=== PATIENT | male | born 1950 | race Caucasian/White ===

== ENCOUNTER → 2016-12-06 | Outpatient (CLI) | payer OTHER, MEDICARE ==
--- NOTE | 2016-12-06 13:40 | EKG ---
Date Performed: 12/06/2016 Time Performed: 09:01:20 PTAGE: 66 years EKG: Sinus rhythm . Right bundle branch block Inferior T wave changes are nonspecific Abnormal ECG NO PREVIOUS TRACING DOCTOR: Armand Garcia Interpretating Date/Time 12/06/2016 13:38:45
[2016-12-07 15:07] LABS: BICARBONATE 30.3 MEQ/L (21.0-32.0); POTASSIUM 3.8 MEQ/L (3.5-5.1)
[2016-12-07 15:52] LABS: HEMATOCRIT 41.1 % (39.0-51.0); MEAN CELL VOLUME 95.5 FL (80.0-100.0); MEAN CORPUSCULAR HEMOGLOBIN 33.3 PG (27.0-34.0); RED BLOOD COUNT 4.31 MIL/MM3 (4.50-5.90); WHITE BLOOD COUNT 7.5 TH/MM3 (4.0-11.0)
[2016-12-07 15:53] LABS: MEAN CORPUSCULAR HGB CONC 34.9 % (32.0-36.0); PLATELET COUNT 207 TH/MM3 (150-450); RED CELL DISTRIBUTION WIDTH 13.3 % (11.6-17.2); REVIEW FLAG FINAL
== END ==
LOC: HCAV 08:40
DX: Z01.818 Encounter for other preprocedural examination (principal); R94.31 Abnormal electrocardiogram [ECG] [EKG]
CPT/HCPCS: 80048; 85027; 93005